=== PATIENT | male | born 1945 | race Caucasian/White ===

== ENCOUNTER 2018-11-02 09:56 | Emergency (ER) ==
[~2018-11-02] VITALS: Ht 185.4 cm; Wt 71.2 kg
[~2018-11-02 09:56] MED LIST: NO REPORTABLE MEDS
[2018-11-02 10:03] VITALS: BP 165/101
[2018-11-02] MEDS ORDERED: HYDROMORPHONE 1 MG/1 ML DISP.SYRIN ONE (10:17)
[2018-11-02] MEDS ORDERED: HYDROMORPHONE 1 MG/1 ML DISP.SYRIN IM ONE (10:30)
== END 2018-11-02 10:23 | disposition home or self-care (01) ==
LOC: ER 10:04
DX: M54.5 Low back pain (principal); G89.29 Other chronic pain
CPT/HCPCS: 96372; 99283; J1170

== ENCOUNTER 2018-11-12 18:55 | Emergency (ER) | payer OTHER ==
[~2018-11-12] VITALS: Ht 185.4 cm; Wt 72.6 kg
[2018-11-12 18:59] VITALS: BP 162/97
--- NOTE | 2018-11-12 19:15 | NUR ---
PT BIBS, C/O CHRONIC BACK PAIN, VS STABLE, UNABLE TO SIT ON ER BED 3 AT THIS TIME D/T SEVERE PAIN, AWAITING TO BE EVAL BY .
[2018-11-12] MEDS ORDERED: oxyCODONE/APAP (5/325 MG) 1 UDTAB TABLET ONE (19:26)
[2018-11-12] MEDS ORDERED: oxyCODONE/APAP (5/325 MG) 1 UDTAB TABLET PO ONE (19:30)
== END 2018-11-12 20:03 | disposition home or self-care (01) ==
LOC: ER 18:55
DX: M54.5 Low back pain (principal); G89.29 Other chronic pain; I48.91 Unspecified atrial fibrillation; Z85.828 Personal history of other malignant neoplasm of skin; Z98.890 Other specified postprocedural states

== ENCOUNTER 2022-08-02 10:01 | Emergency (ER) | payer MEDICARE, OTHER ==
[~2022-08-02] VITALS: Ht 185.4 cm; Wt 78.5 kg
--- NOTE | 2022-08-02 10:15 | NUR ---
RECEIVE PT 77 YRS MALE WALKING IN ACCOMPAN BY S/P FALL DOWN TODY FROM BIECK C/O PAIN ON RT ARM AND LAUCERATION
--- NOTE | 2022-08-02 10:30 | NUR ---
SEEN BY DR. KIRBY
[2022-08-02] MEDS ORDERED: BACI/NEOM/POLY B OINT PKT 1 UDPKT PACKET ONE (10:56)
[2022-08-02] MEDS ORDERED: HYDROCODONE/APAP 5/325MG TABLET ONE (10:57)
[2022-08-02] MEDS ORDERED: TDAP [DIPH/PERTUSSIS/TET] 0.5 ML VIAL IM ONE ×2 (10:58→11:00)
[2022-08-02] MEDS ORDERED: BACI/NEOM/POLY B OINT PKT 1 UDPKT PACKET TP ONE (11:00)
[2022-08-02] MEDS ORDERED: HYDROCODONE/APAP 5/325MG TABLET PO ONE (11:00)
--- NOTE | 2022-08-02 11:00 | NUR ---
XRAY DONE AT BED SIDE
--- NOTE | 2022-08-02 11:45 | NUR ---
[employer] SHOWMAN ORTHO PAGED.
[2022-08-02] MEDS ORDERED: HYDR-4209 PO (11:51)
--- NOTE | 2022-08-02 12:00 | NUR ---
RUTHANN SEVILLAT APPED ON RT ARM PT ABLE TO MOVE HIS
--- NOTE | 2022-08-02 12:40 | NUR ---
Patient discharged to home in stable condition. Written and verbal after care instructions given. Patient verbalizes understanding of instruction.
[2022-08-02 12:46] VITALS: BP 135/73
== END 2022-08-02 12:46 | disposition home or self-care (01) ==
LOC: ER 10:10
DX: S42.441A Displaced fracture (avulsion) of medial epicondyle of right humerus, initial encounter for closed fracture (principal); I48.91 Unspecified atrial fibrillation; Z98.890 Other specified postprocedural states; Z79.899 Other long term (current) drug therapy; V19.9XXA Pedal cyclist (driver) (passenger) injured in unspecified traffic accident, initial encounter; Y93.89 Activity, other specified; Y92.89 Other specified places as the place of occurrence of the external cause; Y99.8 Other external cause status
CPT/HCPCS: 99283; 29105; 90471; 90715; 73080; A6403

== ENCOUNTER 2022-09-23 17:58 | Emergency (ER) | payer MEDICARE ==
[~2022-09-23] VITALS: Ht 185.4 cm; Wt 77.1 kg
[~2022-09-23 17:58] MED LIST changes: +HYDR-4209 PO
--- NOTE | 2022-09-23 18:15 | NUR ---
UA COLLECTED AND SENT TO LAB
[2022-09-23] MEDS ORDERED: KETOROLAC TROMETHAMINE INJ 30 MG/ML VIAL IV ONE (18:30)
[2022-09-23] MEDS ORDERED: IV NS 0.9% 1,000 ML BAG IV ONE (18:30)
[2022-09-23 19:44] LABS: CALCIUM, SERUM 9.3 mg/dL (8.5-10.1); CARBON DIOXIDE 28 mmol/L (21-32); CHLORIDE 107 mmol/L (98-107); CREATININE 1.1 mg/dL (0.6-1.3); GLUCOSE 102 mg/dL (74-106); SODIUM SERUM 143 mmol/L (136-145); UREA NITROGEN, BLOOD 13 mg/dL (7-18)
[2022-09-23 19:48] LABS: ALANINE AMINOTRANSFERASE 22 U/L (12-78); ALKALINE PHOSPHATASE 83 U/L (46-116); ASPARTATE AMINOTRANSFERASE 37 U/L (15-37); BILIRUBIN,DIRECT 0.2 mg/dL (0.0-0.2); BILIRUBIN,TOTAL 0.5 mg/dL (0.2-1.0); LIPASE 114 U/L (73-393); TOTAL PROTEIN, SERUM 6.6 g/dL (6.4-8.2)
--- NOTE | 2022-09-23 20:00 | NUR ---
RECEIVED PT AAOX4. ABLE TO MAKE NEEDS KNOWN. CAME EARLIER WITH CC OF LEFT FLANK PAIN AND PRESSURE ON RIGHT LOWER ABDOMEN. PATIENT HAS ONGOING IV FLUIDS ON NS 1L ATTACHED TO IV LI ON LEFT AC G20. PATIENT HAS PAIN SCALE OF 5/10. WILL CHECK MD'S ORDER FOR PAIN MEDS. VITALS CHECKED. PATIENT WILL BE MONITORED
[2022-09-23 20:03] LABS: BASOPHILS # (AUTO) 0.1 K/uL (0.0-0.2); BASOPHILS % (AUTO) 0.7 % (0.0-2.0); HEMATOCRIT 38 % (39-51); HEMOGLOBIN 12.3 g/dL (13.5-17.5); LYMPHOCYTES # (AUTO) 1.2 K/uL (0.8-4.8); LYMPHOCYTES % (AUTO) 16.8 % (20.0-44.0); MEAN CORPUSCULAR HGB CONC 33 g/dl (31.0-36.0); MEAN CORPUSCULAR VOLUME 92 fL (80-96); MONOCYTES # (AUTO) 0.8 K/uL (0.1-1.30); NEUTROPHILS # (AUTO) 5.1 K/uL (1.8-8.9); NEUTROPHILS % (AUTO) 70.5 % (43.0-81.0); PLATELET COUNT (AUTO) 182 K/uL (150-450); RED BLOOD CELL COUNT(AUTO) 4.09 MIL/uL (4.5-6.0); WHITE BLOOD COUNT (AUTO) 7.2 K/uL (4.3-11.0)
[2022-09-23] MEDS ORDERED: KETOROLAC TROMETHAMINE 15 MG/ML VIAL ONE (20:23)
--- NOTE | 2022-09-23 21:25 | NUR ---
IV removed. Catheter intact and site benign. Pressure and 4x4 applied to site. No bleeding noted.Patient discharged to home in stable condition. Written and verbal after care instructions given. Patient verbalizes understanding of instruction.
[2022-09-23] MEDS ORDERED: IBUP-1955 PO (21:29)
[2022-09-23] MEDS ORDERED: TAMS-12 PO (21:29)
[2022-09-23 22:13] VITALS: BP 149/104
== END 2022-09-23 22:13 | disposition home or self-care (01) ==
LOC: ER 18:03
DX: N20.0 Calculus of kidney (principal); I48.91 Unspecified atrial fibrillation; Z98.890 Other specified postprocedural states; Z79.899 Other long term (current) drug therapy
CPT/HCPCS: 99285; 74176; 96374; 93005; 85025; 80048; 83690; 80076; 36415; 84484; J7030; J1885